=== PATIENT | male | born 1965 | race Two or more races ===

== ENCOUNTER 2018-08-09 08:10 | Emergency (ER) | payer OTHER, SELFPAY ==
[~2018-08-09] VITALS: Ht 165.1 cm; Wt 79.6 kg
[2018-08-09] MEDS ORDERED: FAMOTIDINE 20 MG/2 ML ONE ×2 (08:51→09:06)
[2018-08-09] MEDS ORDERED: ONDANSETRON ODT 8 MG ONE ×2 (08:51→09:06)
[2018-08-09 08:55] LABS: BASOPHILS # (AUTO) 0.02 x10^3/uL (0-0.1); BASOPHILS % (AUTO) 0 % (0-1); EOSINOPHILS # (AUTO) 0.01 x10^3/uL (0-0.4); EOSINOPHILS % (AUTO) 0 % (1-7); LYMPHOCYTES # (AUTO) 0.65 x10^3/uL (1-3.4); LYMPHOCYTES % (AUTO) 5 % (22-44); MD NO; MEAN CORPUSCULAR HEMOGLOBIN 29.3 pg (27.5-34.5); MEAN CORPUSCULAR HGB CONC 34.1 g/dL (33.2-36.2); MEAN CORPUSCULAR VOLUME 85.9 fL (81-97); MEAN PLATELET VOLUME 8.3 fL (7.4-10.4); MONOCYTES # (AUTO) 0.53 x10^3/uL (0.2-0.8); MONOCYTES % (AUTO) 4 % (2-9); NEUTROPHILS # (AUTO) 11.18 x10^3/uL (1.8-6.8); NEUTROPHILS % (AUTO) 90 % (42-75); PLATELET COUNT 271 x10^3/uL (130-400); RED BLOOD COUNT 5.66 x10^6/uL (4.38-5.82); RED CELL DISTRIBUTION WIDTH 12.7 % (9.4-14.8)
[2018-08-09] MEDS ORDERED: FAMOTIDINE 20 MG/2 ML IVP ONE (09:00)
[2018-08-09] MEDS ORDERED: SODIUM CHLORIDE 0.9% 1,000ML IVBOLUS ONE ×2 (09:00→13:00)
[2018-08-09] MEDS ORDERED: SODIUM CHLORIDE FLUSH 10ML SYR IVF ONE (09:00)
[2018-08-09] MEDS ORDERED: ONDANSETRON ODT 8 MG PO PRN (09:00)
[2018-08-09 09:03] LABS: ALBUMIN 4.5 g/dL (3.4-5.0); ANION GAP 8 mmol/L (5-15); CALCIUM 8.7 mg/dL (8.5-10.1); CHLORIDE 108 mmol/L (98-107)
[2018-08-09 09:07] LABS: ALANINE AMINOTRANSFERASE 47 U/L (12-78); ALKALINE PHOSPHATASE 106 U/L (45-117); CREATININE 0.92 mg/dL (0.7-1.3); TOTAL PROTEIN 8.4 g/dL (6.4-8.2)
[2018-08-09] MEDS ORDERED: PROMETHAZINE 25 MG/ML, 1ML ONE (09:14)
[2018-08-09] MEDS ORDERED: PROMETHAZINE 25 MG/ML, 1ML IM ONE (09:30)
[2018-08-09 09:38] LABS: MICROSCOPIC INDICATED
[2018-08-09 09:39] LABS: CULTURE INDICATED? YES
[2018-08-09] MEDS ORDERED: ONDANSETRON 2MG/ML, 2ML ONE (11:24)
[2018-08-09] MEDS ORDERED: ONDANSETRON 2MG/ML, 2ML IVPush ONE (11:30)
[2018-08-09 13:05] VITALS: BP 121/69
== END 2018-08-09 14:05 | disposition home or self-care (01) ==
LOC: ED 10:26
DX: R11.2 Nausea with vomiting, unspecified (principal); R10.13 Epigastric pain; E86.0 Dehydration; R19.7 Diarrhea, unspecified; Z88.0 Allergy status to penicillin
CPT/HCPCS: 36415; 76700; 80053; 81001; 83690; 85025; 87086; 96361; 96372; 96374; 96375; 99285; J2405; J2550; J7030; Q0162; S0028